=== PATIENT | male | born 1955 | race Caucasian/White ===

== ENCOUNTER 2021-09-18 12:58 | Inpatient (IN) ==
[2021-09-18] MEDS ORDERED: Azithromycin 250 MG TABLET PO ONE (13:06)
[2021-09-18] MEDS ORDERED: Ipratropium/Albuterol Neb 3 ML IH ONE (13:06)
[2021-09-18] MEDS ORDERED: cefTRIAXone 1,000 MG in Water for inj. (sterile) 10 ML IVP ONE (13:06)
[2021-09-18] MEDS ORDERED: methylPREDNISolone 125 MG/2 ML VIAL IVP ONE (13:06)
[2021-09-18 13:29] LABS: Basophils % 0.2 %; Red Cell Distribution Width 14.4 % (11.5-14.5)
[2021-09-18 13:31] LABS: Hematocrit 41.4 % (37.5-50.1); Hemoglobin 12.9 g/dL (12.9-16.9); Immature Granulocytes % 0.5 % (0-4); Immature Platelets 9.3 % (1.1-6.1); Lymphocytes # 1.7 K/mcL (0.6-4.6); Lymphocytes % 26.8 %; Mean Corpuscular HGB Conc 31.2 g/dL (31.6-35.5); Mean Corpuscular Hemoglobin 27.8 pg (28.0-33.3); Mean Corpuscular Volume 89.2 fL (83.0-100.0); Mean Platelet Volume 11.6 fL (9.4-12.4); Monocytes # 0.7 K/mcL (0.0-1.3); Monocytes % 10.2 %; Neutrophils # 4.1 K/mcL (1.6-8.9); Platelet Count 118 K/mcL (140-400); Red Blood Count 4.64 M/mcL (4.19-5.50); Segmented Neutrophils % 62.3 %; White Blood Count 6.5 K/mcL (4.3-11.1)
[2021-09-18 14:11] LABS: Adenovirus Not Detected (Not Detect); Bordetella Pertussis Not Detected (Not Detect); Chlamydophila pneumoniae Not Detected (Not Detect); Coronavirus 229E Not Detected (Not Detect); Coronavirus HKU1 Not Detected (Not Detect); Coronavirus NL63 Not Detected (Not Detect); Coronavirus OC43 Not Detected (Not Detect); Human Metapneumovirus Not Detected (Not Detect); Human Rhinovirus/Enterovirus Not Detected (Not Detect); Influenza A Subtype 2009 H1 Not Detected (Not Detect); Influenza B Not Detected (Not Detect); Mycoplasma pneumoniae Not Detected (Not Detect); Parainfluenza Virus 1 Not Detected (Not Detect); Parainfluenza Virus 2 Not Detected (Not Detect); Parainfluenza Virus 3 Not Detected (Not Detect); Parainfluenza Virus 4 Not Detected (Not Detect); Respiratory Syncytial Virus Not Detected (Not Detect)
[2021-09-18 14:17] LABS: SARS-CoV-2 DETECTED (Not Detect)
[2021-09-18 14:49] LABS: Calcium 8.4 mg/dL (8.6-10.3); Potassium 4.1 mEq/L (3.5-5.1)
[2021-09-18 15:08] LABS: Troponin I 0.06 ng/mL (< 0.04)
[2021-09-18] MEDS ORDERED: Naloxone 0.4 MG/ML INJ IVP PRN (15:08)
[2021-09-18] MEDS ORDERED: Acetaminophen 325 MG TABLET PO PRN (15:08)
[2021-09-18] MEDS ORDERED: Ondansetron 4 MG/2 ML VIAL IVP PRN (15:08)
[2021-09-18 16:03] LABS: ABG Base Excess 2 mEq/L (-2 to 3); ABG HCO3 28 mEq/L (21-27); ABG Oxygen Saturation 92 % (95-98); ABG PCO2 49 mmHg (35-45); ABG PH 7.37 pH Units (7.32-7.45); ABG PO2 67 mmHg (85-104); ABG TCO2 30 mEq/L (20-26)
[2021-09-18] MEDS: Ipratropium 1 PUFF INHALER IH SCH ×3 (16:26→23:43)
[2021-09-18] MEDS ORDERED: *HR* Dextrose 50 % in Water (Syg) 50 ML SYRINGE IVP PRN (17:08)
[2021-09-18] MEDS ORDERED: Dextrose Gel 15 GM/37.5 ML TUBE PO PRN ×2 (17:08)
[2021-09-18] MEDS ORDERED: D5% in Water 1,000 ML IVC PRN (17:08)
[2021-09-18 18:05] LABS: INR 1.2; Prothrombin Time 13.5 Seconds (9.4-12.1)
[2021-09-18 18:17] LABS: Albumin 3.6 g/dL (3.5-5.7); Albumin/Globulin Ratio 1.1 (1.1-2.2); Bilirubin,Direct 0.1 mg/dL (0.0-0.2); Bilirubin,Indirect 0.3 mg/dL (0.0-1.0); Bilirubin,Total 0.4 mg/dL (0.3-1.0); Globulin 3.2 g/dL (2.4-3.5); Total Protein 6.8 g/dL (6.4-8.9)
[2021-09-18] MEDS: Aspirin 81 MG TAB.CHEW PO SCH (18:17)
[2021-09-18] MEDS: 0.9 % Sodium Chloride 500 ML IVC SCH ×2 (18:17→20:43)
[2021-09-18] MEDS: Saline Nasal Spray 44 ML BOTTLE NS SCH ×2 (20:30→20:39)
[2021-09-18] MEDS: Artificial Tears SOLN 15 ML BOTTLE BOTH EYES SCH ×2 (20:30→20:39)
[2021-09-18] MEDS: Budesonide/Formoterol 160/4.5 1 PUFF INH IH SCH (20:30)
[2021-09-18] MEDS: Saliva Stimulant 44.3ml BOTTLE PO SCH ×2 (20:30→20:39)
[2021-09-18] MEDS: *HR* Heparin 5,000 UNIT/ML VIAL SQ SCH (20:36)
[2021-09-18] MEDS: Lactobacillus 1 EACH CAP.SPRINK PO SCH (20:37)
[2021-09-18] MEDS: Chlorhexidine Rinse 15 ML MOUTHWASH MM SCH (20:39)
[2021-09-18] MEDS ORDERED: Remdesivir 200 MG in 0.9 % Sodium Chloride 100 ML IVPB ONE (23:00)
[2021-09-19] MEDS: 0.9 % Sodium Chloride 500 ML IVC SCH ×16 (01:00→17:10)
[2021-09-19] MEDS: Ipratropium 1 PUFF INHALER IH SCH ×6 (03:41→23:51)
[2021-09-19] MEDS: *HR* Heparin 5,000 UNIT/ML VIAL SQ SCH ×3 (05:28→20:38)
[2021-09-19 06:04] LABS: Prothrombin Time 11.2 Seconds (9.4-12.1)
[2021-09-19 06:07] LABS: Estimated Average Glucose 128 mg/dl; Hemoglobin A1C 6.1 %
[2021-09-19 06:21] LABS: Alanine Aminotransferase 8 Units/L (7-52); Albumin 3.1 g/dL (3.5-5.7); Albumin/Globulin Ratio 1.1 (1.1-2.2); Alkaline Phosphatase 32 Units/L (34-104); Aspartate Amino Transferase 22 Units/L (13-39); BUN/Creatinine Ratio 25 (6-26); Bilirubin,Direct 0.1 mg/dL (0.0-0.2); Bilirubin,Indirect 0.2 mg/dL (0.0-1.0); Bilirubin,Total 0.3 mg/dL (0.3-1.0); Blood Urea Nitrogen 29 mg/dL (8-23); Calcium 7.5 mg/dL (8.6-10.3); Carbon Dioxide 26 mEq/L (23-29); Chloride 105 mEq/L (98-107); Chol/HDL Ratio 3.7 (0-4.9); Cholesterol 92 mg/dL (< 200); Globulin 2.7 g/dL (2.4-3.5); Glucose 198 mg/dL (70-105); HDL Cholesterol 25 mg/dL (40-59); LDL Cholesterol,Calculated 40 mg/dL (< 100); Magnesium 2.2 mg/dL (1.6-2.6); Osmolality,Calculated 299 (280-300); Phosphorous 3.5 mg/dL (2.7-4.5); Potassium 3.9 mEq/L (3.5-5.1); Sodium 139 mEq/L (136-145); Total Protein 5.8 g/dL (6.4-8.9); Triglycerides 135 mg/dL (< 150); eGFR For African Americans > 60 (> 60); eGFR For Non-African Americans > 60 (> 60)
[2021-09-19 06:34] LABS: Thyroid Stimulating Hormone 0.274 mcIU/mL (0.340-5.600)
[2021-09-19] MEDS: Budesonide/Formoterol 160/4.5 1 PUFF INH IH SCH ×2 (08:25→20:03)
[2021-09-19 09:39] LABS: C-Reactive Protein 54 mg/L (Less than 10)
[2021-09-19] MEDS: Artificial Tears SOLN 15 ML BOTTLE BOTH EYES SCH ×4 (10:33→20:37)
[2021-09-19] MEDS: Azithromycin 250 MG TABLET PO SCH (10:33)
[2021-09-19] MEDS: Multivit/Ca/Min/Fe/FA 1 TAB TABLET PO SCH (10:34)
[2021-09-19] MEDS: Lactobacillus 1 EACH CAP.SPRINK PO SCH ×2 (10:34→20:38)
[2021-09-19] MEDS: Cholecalciferol (D-3) 1,000 UNIT (25MCG) TABLET PO SCH (10:34)
[2021-09-19] MEDS: Saline Nasal Spray 44 ML BOTTLE NS SCH ×4 (10:35→20:37)
[2021-09-19] MEDS: Saliva Stimulant 44.3ml BOTTLE PO SCH ×4 (10:35→20:37)
[2021-09-19] MEDS: Chlorhexidine Rinse 15 ML MOUTHWASH MM SCH ×2 (10:35→20:38)
[2021-09-19] MEDS: Aspirin 81 MG TAB.CHEW PO SCH (10:57)
[2021-09-19 12:33] LABS: Hemoglobin 11.4 g/dL (12.9-16.9)
[2021-09-19 12:35] LABS: Basophils % 0.2 %; Hematocrit 35.7 % (37.5-50.1); Immature Granulocytes % 0.7 % (0-4); Immature Platelets 13.4 % (1.1-6.1); Lymphocytes # 0.8 K/mcL (0.6-4.6); Lymphocytes % 17.2 %; Mean Corpuscular HGB Conc 31.9 g/dL (31.6-35.5); Mean Corpuscular Hemoglobin 28.6 pg (28.0-33.3); Mean Corpuscular Volume 89.5 fL (83.0-100.0); Mean Platelet Volume 12.2 fL (9.4-12.4); Monocytes # 0.2 K/mcL (0.0-1.3); Monocytes % 5.1 %; Red Blood Count 3.99 M/mcL (4.19-5.50); Red Cell Distribution Width 14.2 % (11.5-14.5); Segmented Neutrophils % 76.8 %; White Blood Count 4.5 K/mcL (4.3-11.1)
[2021-09-19 13:51] LABS: Neutrophils # 3.5 K/mcL (1.6-8.9); Platelet Count 77 K/mcL (140-400)
[2021-09-19 13:54] LABS: Platelet Estimate Decreased (Normal)
[2021-09-19] MEDS: Remdesivir 100 MG in 0.9 % Sodium Chloride 100 ML IVPB SCH (20:39)
[2021-09-20] MEDS: Ipratropium 1 PUFF INHALER IH SCH ×6 (04:20→23:54)
[2021-09-20] MEDS: *HR* Heparin 5,000 UNIT/ML VIAL SQ SCH ×3 (05:34→21:58)
[2021-09-20] MEDS: Budesonide/Formoterol 160/4.5 1 PUFF INH IH SCH ×2 (07:47→20:43)
[2021-09-20] MEDS: Aspirin 81 MG TAB.CHEW PO SCH (08:16)
[2021-09-20] MEDS: Lactobacillus 1 EACH CAP.SPRINK PO SCH ×2 (08:16→21:59)
[2021-09-20] MEDS: Multivit/Ca/Min/Fe/FA 1 TAB TABLET PO SCH (08:16)
[2021-09-20] MEDS: Azithromycin 250 MG TABLET PO SCH (08:16)
[2021-09-20] MEDS: Chlorhexidine Rinse 15 ML MOUTHWASH MM SCH ×2 (08:17→21:59)
[2021-09-20] MEDS: Cholecalciferol (D-3) 1,000 UNIT (25MCG) TABLET PO SCH (08:17)
[2021-09-20] MEDS: Artificial Tears SOLN 15 ML BOTTLE BOTH EYES SCH ×4 (08:28→21:57)
[2021-09-20] MEDS: Saline Nasal Spray 44 ML BOTTLE NS SCH ×4 (08:28→21:57)
[2021-09-20] MEDS: Saliva Stimulant 44.3ml BOTTLE PO SCH ×4 (08:28→21:57)
[2021-09-20 09:54] LABS: INR 1.2; Prothrombin Time 13.2 Seconds (9.4-12.1)
[2021-09-20 10:10] LABS: Alanine Aminotransferase 11 Units/L (7-52); Albumin 3.1 g/dL (3.5-5.7); Albumin/Globulin Ratio 1.1 (1.1-2.2); Alkaline Phosphatase 31 Units/L (34-104); Aspartate Amino Transferase 21 Units/L (13-39); BUN/Creatinine Ratio 33 (6-26); Bilirubin,Direct 0.1 mg/dL (0.0-0.2); Bilirubin,Indirect 0.2 mg/dL (0.0-1.0); Bilirubin,Total 0.3 mg/dL (0.3-1.0); Blood Urea Nitrogen 34 mg/dL (8-23); Calcium 7.6 mg/dL (8.6-10.3); Carbon Dioxide 26 mEq/L (23-29); Chloride 109 mEq/L (98-107); Globulin 2.8 g/dL (2.4-3.5); Glucose 175 mg/dL (70-105); Osmolality,Calculated 302 (280-300); Sodium 140 mEq/L (136-145); Total Protein 5.9 g/dL (6.4-8.9); eGFR For African Americans > 60 (> 60); eGFR For Non-African Americans > 60 (> 60)
[2021-09-20] MEDS: Remdesivir 100 MG in 0.9 % Sodium Chloride 100 ML IVPB SCH (21:59)
[2021-09-21] MEDS: Ipratropium 1 PUFF INHALER IH SCH ×5 (03:30→19:45)
[2021-09-21] MEDS: *HR* Heparin 5,000 UNIT/ML VIAL SQ SCH ×3 (05:18→21:30)
[2021-09-21] MEDS: Budesonide/Formoterol 160/4.5 1 PUFF INH IH SCH ×2 (07:40→19:46)
[2021-09-21] MEDS: Saliva Stimulant 44.3ml BOTTLE PO SCH ×2 (10:48→14:26)
[2021-09-21] MEDS: Saline Nasal Spray 44 ML BOTTLE NS SCH ×2 (10:49→14:26)
[2021-09-21] MEDS: Artificial Tears SOLN 15 ML BOTTLE BOTH EYES SCH ×2 (10:49→14:26)
[2021-09-21] MEDS: Cholecalciferol (D-3) 1,000 UNIT (25MCG) TABLET PO SCH (10:49)
[2021-09-21] MEDS: Azithromycin 250 MG TABLET PO SCH (10:50)
[2021-09-21] MEDS: Multivit/Ca/Min/Fe/FA 1 TAB TABLET PO SCH (10:50)
[2021-09-21] MEDS: calcitrioL 0.25 MCG CAPSULE PO SCH (10:50)
[2021-09-21] MEDS: Lactobacillus 1 EACH CAP.SPRINK PO SCH ×2 (10:50→21:29)
[2021-09-21] MEDS: Aspirin 81 MG TAB.CHEW PO SCH (10:51)
[2021-09-21 12:43] LABS: INR 1.2; Prothrombin Time 13.2 Seconds (9.4-12.1)
[2021-09-21 12:57] LABS: Alanine Aminotransferase 17 Units/L (7-52); Albumin 3.4 g/dL (3.5-5.7); Albumin/Globulin Ratio 1.1 (1.1-2.2); Alkaline Phosphatase 37 Units/L (34-104); Aspartate Amino Transferase 32 Units/L (13-39); BUN/Creatinine Ratio 40 (6-26); Bilirubin,Indirect 0.4 mg/dL (0.0-1.0); Bilirubin,Total 0.4 mg/dL (0.3-1.0); Blood Urea Nitrogen 33 mg/dL (8-23); Calcium 7.9 mg/dL (8.6-10.3); Carbon Dioxide 27 mEq/L (23-29); Chloride 111 mEq/L (98-107); Glucose 84 mg/dL (70-105); Osmolality,Calculated 302 (280-300); Potassium 4.2 mEq/L (3.5-5.1); Sodium 143 mEq/L (136-145); Total Protein 6.4 g/dL (6.4-8.9); eGFR For African Americans > 60 (> 60); eGFR For Non-African Americans > 60 (> 60)
[2021-09-21] MEDS: Remdesivir 100 MG in 0.9 % Sodium Chloride 100 ML IVPB SCH (21:30)
[2021-09-22] MEDS: Ipratropium 1 PUFF INHALER IH SCH ×7 (00:07→23:31)
[2021-09-22] MEDS: *HR* Heparin 5,000 UNIT/ML VIAL SQ SCH ×3 (05:29→21:45)
[2021-09-22] MEDS: Artificial Tears SOLN 15 ML BOTTLE BOTH EYES SCH ×5 (06:10→21:45)
[2021-09-22] MEDS: Saliva Stimulant 44.3ml BOTTLE PO SCH ×5 (06:10→21:45)
[2021-09-22] MEDS: Saline Nasal Spray 44 ML BOTTLE NS SCH ×5 (06:10→21:45)
[2021-09-22 06:21] LABS: Hemoglobin 11.4 g/dL (12.9-16.9); Red Cell Distribution Width 14.3 % (11.5-14.5)
[2021-09-22 06:29] LABS: Hematocrit 36.8 % (37.5-50.1); Mean Corpuscular Hemoglobin 27.8 pg (28.0-33.3); Mean Corpuscular Volume 89.8 fL (83.0-100.0); Mean Platelet Volume 12.3 fL (9.4-12.4); Platelet Count 132 K/mcL (140-400); White Blood Count 8.6 K/mcL (4.3-11.1)
[2021-09-22 06:31] LABS: Alanine Aminotransferase 22 Units/L (7-52); Albumin 3.3 g/dL (3.5-5.7); Albumin/Globulin Ratio 1.2 (1.1-2.2); Alkaline Phosphatase 40 Units/L (34-104); Aspartate Amino Transferase 38 Units/L (13-39); BUN/Creatinine Ratio 32 (6-26); Bilirubin,Direct 0.1 mg/dL (0.0-0.2); Bilirubin,Indirect 0.4 mg/dL (0.0-1.0); Bilirubin,Total 0.5 mg/dL (0.3-1.0); Blood Urea Nitrogen 26 mg/dL (8-23); Calcium 7.8 mg/dL (8.6-10.3); Carbon Dioxide 31 mEq/L (23-29); Chloride 108 mEq/L (98-107); Globulin 2.7 g/dL (2.4-3.5); Glucose 100 mg/dL (70-105); Osmolality,Calculated 303 (280-300); Potassium 3.9 mEq/L (3.5-5.1); Sodium 144 mEq/L (136-145); eGFR For African Americans > 60 (> 60); eGFR For Non-African Americans > 60 (> 60)
[2021-09-22 06:32] LABS: INR 1.2; Prothrombin Time 13.3 Seconds (9.4-12.1)
[2021-09-22 06:47] LABS: Ferritin 332 ng/mL (20-250)
[2021-09-22] MEDS: Lactobacillus 1 EACH CAP.SPRINK PO SCH ×2 (08:01→21:44)
[2021-09-22] MEDS: Multivit/Ca/Min/Fe/FA 1 TAB TABLET PO SCH (08:02)
[2021-09-22] MEDS: Cholecalciferol (D-3) 1,000 UNIT (25MCG) TABLET PO SCH (08:02)
[2021-09-22] MEDS: Aspirin 81 MG TAB.CHEW PO SCH (08:02)
[2021-09-22] MEDS: Azithromycin 250 MG TABLET PO SCH (08:02)
[2021-09-22] MEDS: Budesonide/Formoterol 160/4.5 1 PUFF INH IH SCH ×2 (11:35→19:57)
[2021-09-22] MEDS: Insulin LISPRO 300 UNITS/3 ML VIAL SUBQ SCH (17:58)
[2021-09-22] MEDS: Remdesivir 100 MG in 0.9 % Sodium Chloride 100 ML IVPB SCH (21:46)
[2021-09-23] MEDS: Ipratropium 1 PUFF INHALER IH SCH ×6 (03:20→23:41)
[2021-09-23 04:40] LABS: INR 1.2; Prothrombin Time 13.3 Seconds (9.4-12.1)
[2021-09-23 04:58] LABS: Alanine Aminotransferase 41 Units/L (7-52); Albumin 3.3 g/dL (3.5-5.7); Albumin/Globulin Ratio 1.2 (1.1-2.2); Alkaline Phosphatase 43 Units/L (34-104); Aspartate Amino Transferase 61 Units/L (13-39); BUN/Creatinine Ratio 32 (6-26); Bilirubin,Direct 0.2 mg/dL (0.0-0.2); Bilirubin,Indirect 0.5 mg/dL (0.0-1.0); Bilirubin,Total 0.7 mg/dL (0.3-1.0); Blood Urea Nitrogen 24 mg/dL (8-23); Calcium 8.2 mg/dL (8.6-10.3); Carbon Dioxide 32 mEq/L (23-29); Chloride 106 mEq/L (98-107); Globulin 2.8 g/dL (2.4-3.5); Glucose 129 mg/dL (70-105); Osmolality,Calculated 298 (280-300); Sodium 141 mEq/L (136-145); Total Protein 6.1 g/dL (6.4-8.9); eGFR For African Americans > 60 (> 60); eGFR For Non-African Americans > 60 (> 60)
[2021-09-23] MEDS: *HR* Heparin 5,000 UNIT/ML VIAL SQ SCH ×3 (06:16→20:01)
[2021-09-23] MEDS: Budesonide/Formoterol 160/4.5 1 PUFF INH IH SCH ×2 (07:53→20:14)
[2021-09-23] MEDS: Aspirin 81 MG TAB.CHEW PO SCH (09:12)
[2021-09-23] MEDS: Lactobacillus 1 EACH CAP.SPRINK PO SCH ×2 (09:12→20:01)
[2021-09-23] MEDS: Multivit/Ca/Min/Fe/FA 1 TAB TABLET PO SCH (09:12)
[2021-09-23] MEDS: calcitrioL 0.25 MCG CAPSULE PO SCH (09:12)
[2021-09-23] MEDS: Cholecalciferol (D-3) 1,000 UNIT (25MCG) TABLET PO SCH (09:12)
[2021-09-23] MEDS: Saline Nasal Spray 44 ML BOTTLE NS SCH ×4 (09:13→20:01)
[2021-09-23] MEDS: Artificial Tears SOLN 15 ML BOTTLE BOTH EYES SCH ×4 (09:13→20:02)
[2021-09-23] MEDS: Insulin LISPRO 300 UNITS/3 ML VIAL SUBQ SCH ×3 (09:14→17:24)
[2021-09-23] MEDS: Saliva Stimulant 44.3ml BOTTLE PO SCH ×4 (09:14→20:02)
[2021-09-23 13:53] LABS: C-Reactive Protein 63 mg/L (Less than 10)
[2021-09-24] MEDS: Ipratropium 1 PUFF INHALER IH SCH ×6 (02:44→23:45)
[2021-09-24 04:55] LABS: Hematocrit 40.4 % (37.5-50.1); Hemoglobin 12.9 g/dL (12.9-16.9); Mean Corpuscular HGB Conc 31.9 g/dL (31.6-35.5); Mean Corpuscular Hemoglobin 27.9 pg (28.0-33.3); Mean Corpuscular Volume 87.4 fL (83.0-100.0); Mean Platelet Volume 11.9 fL (9.4-12.4); Platelet Count 209 K/mcL (140-400); Red Blood Count 4.62 M/mcL (4.19-5.50); Red Cell Distribution Width 14.1 % (11.5-14.5); White Blood Count 9.5 K/mcL (4.3-11.1)
[2021-09-24 05:17] LABS: BUN/Creatinine Ratio 30 (6-26); Blood Urea Nitrogen 24 mg/dL (8-23); Calcium 8.8 mg/dL (8.6-10.3); Carbon Dioxide 30 mEq/L (23-29); Chloride 104 mEq/L (98-107); Glucose 137 mg/dL (70-105); Lactate Dehydrogenase 259 Units/L (140-271); Osmolality,Calculated 296 (280-300); Potassium 4.2 mEq/L (3.5-5.1); Sodium 140 mEq/L (136-145); eGFR For African Americans > 60 (> 60); eGFR For Non-African Americans > 60 (> 60)
[2021-09-24] MEDS: *HR* Heparin 5,000 UNIT/ML VIAL SQ SCH ×3 (05:27→20:10)
[2021-09-24 05:43] LABS: Ferritin 217 ng/mL (20-250)
[2021-09-24] MEDS: Saline Nasal Spray 44 ML BOTTLE NS SCH ×4 (07:46→20:10)
[2021-09-24] MEDS: Saliva Stimulant 44.3ml BOTTLE PO SCH ×4 (07:46→20:10)
[2021-09-24] MEDS: Artificial Tears SOLN 15 ML BOTTLE BOTH EYES SCH ×4 (07:46→20:10)
[2021-09-24] MEDS: Multivit/Ca/Min/Fe/FA 1 TAB TABLET PO SCH (07:47)
[2021-09-24] MEDS: Lactobacillus 1 EACH CAP.SPRINK PO SCH ×2 (07:47→20:10)
[2021-09-24] MEDS: Aspirin 81 MG TAB.CHEW PO SCH (07:47)
[2021-09-24] MEDS: Cholecalciferol (D-3) 1,000 UNIT (25MCG) TABLET PO SCH (07:47)
[2021-09-24] MEDS: Insulin LISPRO 300 UNITS/3 ML VIAL SUBQ SCH ×3 (07:54→16:45)
[2021-09-24] MEDS ORDERED: Isovue-370 500 ML BOTTLE IVP ONE (10:22)
[2021-09-24] MEDS: Budesonide/Formoterol 160/4.5 1 PUFF INH IH SCH ×2 (11:30→19:41)
[2021-09-25] MEDS: Ipratropium 1 PUFF INHALER IH SCH ×6 (03:45→23:36)
[2021-09-25 03:56] LABS: Hematocrit 39.9 % (37.5-50.1); Hemoglobin 12.8 g/dL (12.9-16.9); Mean Corpuscular HGB Conc 32.1 g/dL (31.6-35.5); Mean Corpuscular Volume 87.3 fL (83.0-100.0); Mean Platelet Volume 11.9 fL (9.4-12.4); Platelet Count 224 K/mcL (140-400); Red Blood Count 4.57 M/mcL (4.19-5.50); Red Cell Distribution Width 14.1 % (11.5-14.5)
[2021-09-25 04:09] LABS: INR 1.1; Prothrombin Time 12.1 Seconds (9.4-12.1)
[2021-09-25 04:20] LABS: Alanine Aminotransferase 35 Units/L (7-52); Albumin 3.2 g/dL (3.5-5.7); Alkaline Phosphatase 43 Units/L (34-104); Aspartate Amino Transferase 23 Units/L (13-39); BUN/Creatinine Ratio 31 (6-26); Bilirubin,Direct 0.2 mg/dL (0.0-0.2); Bilirubin,Indirect 0.6 mg/dL (0.0-1.0); Bilirubin,Total 0.8 mg/dL (0.3-1.0); Blood Urea Nitrogen 27 mg/dL (8-23); C-Reactive Protein 19 mg/L (Less than 10); Calcium 8.5 mg/dL (8.6-10.3); Carbon Dioxide 29 mEq/L (23-29); Chloride 106 mEq/L (98-107); Globulin 3.1 g/dL (2.4-3.5); Glucose 122 mg/dL (70-105); Osmolality,Calculated 298 (280-300); Potassium 4.2 mEq/L (3.5-5.1); Sodium 141 mEq/L (136-145); Total Protein 6.3 g/dL (6.4-8.9); eGFR For African Americans > 60 (> 60); eGFR For Non-African Americans > 60 (> 60)
[2021-09-25 05:08] LABS: Ferritin 231 ng/mL (20-250)
[2021-09-25] MEDS: *HR* Heparin 5,000 UNIT/ML VIAL SQ SCH ×3 (05:44→21:01)
[2021-09-25] MEDS: Insulin LISPRO 300 UNITS/3 ML VIAL SUBQ SCH ×3 (08:25→17:46)
[2021-09-25] MEDS: Multivit/Ca/Min/Fe/FA 1 TAB TABLET PO SCH (08:39)
[2021-09-25] MEDS: Saline Nasal Spray 44 ML BOTTLE NS SCH ×4 (08:39→21:00)
[2021-09-25] MEDS: Artificial Tears SOLN 15 ML BOTTLE BOTH EYES SCH ×4 (08:39→21:01)
[2021-09-25] MEDS: Lactobacillus 1 EACH CAP.SPRINK PO SCH ×2 (08:39→21:00)
[2021-09-25] MEDS: Aspirin 81 MG TAB.CHEW PO SCH (08:39)
[2021-09-25] MEDS: Cholecalciferol (D-3) 1,000 UNIT (25MCG) TABLET PO SCH (08:39)
[2021-09-25] MEDS: Saliva Stimulant 44.3ml BOTTLE PO SCH ×4 (08:39→21:00)
[2021-09-25] MEDS: calcitrioL 0.25 MCG CAPSULE PO SCH (08:39)
[2021-09-25] MEDS: Budesonide/Formoterol 160/4.5 1 PUFF INH IH SCH ×2 (09:10→20:07)
[2021-09-26] MEDS: Ipratropium 1 PUFF INHALER IH SCH ×5 (03:59→19:50)
[2021-09-26] MEDS: *HR* Heparin 5,000 UNIT/ML VIAL SQ SCH ×3 (04:21→20:13)
[2021-09-26 05:18] LABS: Hematocrit 39.8 % (37.5-50.1); Hemoglobin 12.3 g/dL (12.9-16.9); Mean Corpuscular HGB Conc 30.9 g/dL (31.6-35.5); Mean Corpuscular Hemoglobin 27.5 pg (28.0-33.3); Mean Platelet Volume 12.2 fL (9.4-12.4); Platelet Count 215 K/mcL (140-400); Red Blood Count 4.47 M/mcL (4.19-5.50); Red Cell Distribution Width 14.1 % (11.5-14.5); White Blood Count 8.7 K/mcL (4.3-11.1)
[2021-09-26 05:36] LABS: BUN/Creatinine Ratio 34 (6-26); Blood Urea Nitrogen 27 mg/dL (8-23); Calcium 7.9 mg/dL (8.6-10.3); Carbon Dioxide 29 mEq/L (23-29); Chloride 110 mEq/L (98-107); Glucose 121 mg/dL (70-105); Osmolality,Calculated 302 (280-300); Sodium 143 mEq/L (136-145); eGFR For African Americans > 60 (> 60); eGFR For Non-African Americans > 60 (> 60)
[2021-09-26] MEDS: Budesonide/Formoterol 160/4.5 1 PUFF INH IH SCH ×2 (07:31→19:52)
[2021-09-26] MEDS: Insulin LISPRO 300 UNITS/3 ML VIAL SUBQ SCH ×3 (09:00→16:43)
[2021-09-26] MEDS: Saline Nasal Spray 44 ML BOTTLE NS SCH ×4 (09:42→20:13)
[2021-09-26] MEDS: Saliva Stimulant 44.3ml BOTTLE PO SCH ×4 (09:42→20:12)
[2021-09-26] MEDS: Cholecalciferol (D-3) 1,000 UNIT (25MCG) TABLET PO SCH (09:43)
[2021-09-26] MEDS: Lactobacillus 1 EACH CAP.SPRINK PO SCH ×2 (09:43→20:12)
[2021-09-26] MEDS: Artificial Tears SOLN 15 ML BOTTLE BOTH EYES SCH ×4 (09:43→20:13)
[2021-09-26] MEDS: Aspirin 81 MG TAB.CHEW PO SCH (09:43)
[2021-09-26] MEDS: Multivit/Ca/Min/Fe/FA 1 TAB TABLET PO SCH (09:43)
[2021-09-27] MEDS: Ipratropium 1 PUFF INHALER IH SCH ×6 (00:18→19:51)
[2021-09-27] MEDS: *HR* Heparin 5,000 UNIT/ML VIAL SQ SCH ×3 (06:24→20:38)
[2021-09-27] MEDS: Budesonide/Formoterol 160/4.5 1 PUFF INH IH SCH ×2 (07:52→19:51)
[2021-09-27] MEDS: Saline Nasal Spray 44 ML BOTTLE NS SCH ×4 (08:41→20:37)
[2021-09-27] MEDS: Artificial Tears SOLN 15 ML BOTTLE BOTH EYES SCH ×4 (08:41→20:37)
[2021-09-27] MEDS: calcitrioL 0.25 MCG CAPSULE PO SCH (08:41)
[2021-09-27] MEDS: Cholecalciferol (D-3) 1,000 UNIT (25MCG) TABLET PO SCH (08:41)
[2021-09-27] MEDS: Saliva Stimulant 44.3ml BOTTLE PO SCH ×4 (08:41→20:37)
[2021-09-27] MEDS: Lactobacillus 1 EACH CAP.SPRINK PO SCH ×2 (08:41→20:37)
[2021-09-27] MEDS: Aspirin 81 MG TAB.CHEW PO SCH (08:41)
[2021-09-27] MEDS: Multivit/Ca/Min/Fe/FA 1 TAB TABLET PO SCH (08:41)
[2021-09-27] MEDS: Insulin LISPRO 300 UNITS/3 ML VIAL SUBQ SCH ×3 (08:42→18:02)
[2021-09-28] MEDS: Ipratropium 1 PUFF INHALER IH SCH ×7 (03:40→23:40)
[2021-09-28] MEDS: *HR* Heparin 5,000 UNIT/ML VIAL SQ SCH ×3 (06:28→21:28)
[2021-09-28] MEDS: Budesonide/Formoterol 160/4.5 1 PUFF INH IH SCH ×2 (07:51→20:06)
[2021-09-28] MEDS: Cholecalciferol (D-3) 1,000 UNIT (25MCG) TABLET PO SCH (08:33)
[2021-09-28] MEDS: Artificial Tears SOLN 15 ML BOTTLE BOTH EYES SCH ×4 (08:33→21:27)
[2021-09-28] MEDS: Lactobacillus 1 EACH CAP.SPRINK PO SCH ×2 (08:33→21:28)
[2021-09-28] MEDS: Multivit/Ca/Min/Fe/FA 1 TAB TABLET PO SCH (08:33)
[2021-09-28] MEDS: Aspirin 81 MG TAB.CHEW PO SCH (08:33)
[2021-09-28] MEDS: Insulin LISPRO 300 UNITS/3 ML VIAL SUBQ SCH ×3 (08:34→17:44)
[2021-09-28] MEDS: Saliva Stimulant 44.3ml BOTTLE PO SCH ×4 (08:34→21:28)
[2021-09-28] MEDS: Saline Nasal Spray 44 ML BOTTLE NS SCH ×4 (08:34→21:28)
[2021-09-29] MEDS: Ipratropium 1 PUFF INHALER IH SCH ×5 (03:20→21:01)
[2021-09-29] MEDS: *HR* Heparin 5,000 UNIT/ML VIAL SQ SCH ×3 (06:01→21:54)
[2021-09-29] MEDS: Lactobacillus 1 EACH CAP.SPRINK PO SCH ×2 (07:55→21:54)
[2021-09-29] MEDS: calcitrioL 0.25 MCG CAPSULE PO SCH (07:55)
[2021-09-29] MEDS: Multivit/Ca/Min/Fe/FA 1 TAB TABLET PO SCH (07:55)
[2021-09-29] MEDS: Aspirin 81 MG TAB.CHEW PO SCH (07:55)
[2021-09-29] MEDS: Cholecalciferol (D-3) 1,000 UNIT (25MCG) TABLET PO SCH (07:56)
[2021-09-29] MEDS: Artificial Tears SOLN 15 ML BOTTLE BOTH EYES SCH ×4 (07:56→21:54)
[2021-09-29] MEDS: Insulin LISPRO 300 UNITS/3 ML VIAL SUBQ SCH ×3 (07:56→16:59)
[2021-09-29] MEDS: Saliva Stimulant 44.3ml BOTTLE PO SCH ×4 (07:56→21:54)
[2021-09-29] MEDS: Saline Nasal Spray 44 ML BOTTLE NS SCH ×4 (07:56→21:55)
[2021-09-29] MEDS: Budesonide/Formoterol 160/4.5 1 PUFF INH IH SCH ×2 (09:10→21:01)
[2021-09-30] MEDS: Ipratropium 1 PUFF INHALER IH SCH ×7 (00:09→23:42)
[2021-09-30] MEDS: *HR* Heparin 5,000 UNIT/ML VIAL SQ SCH ×3 (06:46→21:37)
[2021-09-30] MEDS: Artificial Tears SOLN 15 ML BOTTLE BOTH EYES SCH ×4 (07:35→21:57)
[2021-09-30] MEDS: Saline Nasal Spray 44 ML BOTTLE NS SCH ×4 (07:35→21:37)
[2021-09-30] MEDS: Saliva Stimulant 44.3ml BOTTLE PO SCH ×4 (07:35→21:37)
[2021-09-30] MEDS: Lactobacillus 1 EACH CAP.SPRINK PO SCH ×2 (07:36→21:37)
[2021-09-30] MEDS: Cholecalciferol (D-3) 1,000 UNIT (25MCG) TABLET PO SCH (07:36)
[2021-09-30] MEDS: Multivit/Ca/Min/Fe/FA 1 TAB TABLET PO SCH (07:36)
[2021-09-30] MEDS: Aspirin 81 MG TAB.CHEW PO SCH (07:36)
[2021-09-30] MEDS: Budesonide/Formoterol 160/4.5 1 PUFF INH IH SCH ×2 (07:56→20:35)
[2021-09-30] MEDS: Insulin LISPRO 300 UNITS/3 ML VIAL SUBQ SCH ×3 (08:22→18:10)
[2021-10-01] MEDS: Ipratropium 1 PUFF INHALER IH SCH ×4 (03:54→16:04)
[2021-10-01] MEDS: *HR* Heparin 5,000 UNIT/ML VIAL SQ SCH (05:42)
[2021-10-01] MEDS: Budesonide/Formoterol 160/4.5 1 PUFF INH IH SCH (08:30)
[2021-10-01] MEDS: Insulin LISPRO 300 UNITS/3 ML VIAL SUBQ SCH ×2 (09:22→12:36)
[2021-10-01] MEDS: Aspirin 81 MG TAB.CHEW PO SCH (09:24)
[2021-10-01] MEDS: Artificial Tears SOLN 15 ML BOTTLE BOTH EYES SCH ×2 (09:24→12:37)
[2021-10-01] MEDS: Multivit/Ca/Min/Fe/FA 1 TAB TABLET PO SCH (09:24)
[2021-10-01] MEDS: Lactobacillus 1 EACH CAP.SPRINK PO SCH (09:24)
[2021-10-01] MEDS: calcitrioL 0.25 MCG CAPSULE PO SCH (09:24)
[2021-10-01] MEDS: Cholecalciferol (D-3) 1,000 UNIT (25MCG) TABLET PO SCH (09:24)
[2021-10-01] MEDS: Saline Nasal Spray 44 ML BOTTLE NS SCH ×2 (09:25→12:37)
[2021-10-01] MEDS: Saliva Stimulant 44.3ml BOTTLE PO SCH ×2 (09:25→12:37)
[2021-10-01 11:39] VITALS: BP 106/69; PULSE 82; TEMP 98.2
[2021-10-01 14:51] VITALS: O2SAT 95
== END 2021-10-01 16:50 | disposition home or self-care (01) | DRG 871 ==
LOC: SUATTDRO → 3NENU 12:58 → EMEROOARM 12:58 → 3NENU 17:14 → SUATTDRO 17:27
PROVIDERS: ADMIT Internal Medicine; ATTEND Student in an Organized Health Care Education/Training Program